=== PATIENT | female | born 1995 | race Caucasian/White ===

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

== ENCOUNTER → 2017-05-02 | Outpatient (CLI) | payer OTHER ==
[~2017-05-02] MED LIST changes: -PROPOFOL IV EMULSION 10 MG/ML 20 ML VIAL IV ONE
[2017-05-02 13:34] LABS: CORTISOL AM*DRAW BETWEEN 7-9AM 14.09 mcg/dl (4.30-22.40); T3 FREE 2.71 pg/ml (2.30-4.20)
[2017-05-02 13:44] LABS: PROLACTIN 9.1 ng/mL
[2017-05-06 16:13] LABS: ANA SCREEN TC 249X POSITIVE (NEGATIVE)
== END | disposition home or self-care (01) ==
LOC: C.LABBC 08:33
PROVIDERS: ATTEND Family Medicine
DX: E28.9 Ovarian dysfunction, unspecified (principal)

== ENCOUNTER → 2017-07-18 | Outpatient (CLI) | payer OTHER | END | disposition home or self-care (01) | LOC: C.PATHSPEC 16:57 | PROVIDERS: ATTEND Urology | DX: R35.0 Frequency of micturition (principal) ==

== ENCOUNTER → 2017-09-18 | Outpatient (CLI) | payer OTHER ==
[~2017-09-18] MED LIST changes: +OPTIRAY 320 IV PRN
--- NOTE | 2017-09-18 12:23 | DIAGNOSTIC IMAGING REPORT ---
CT ABD/PELVIS IV AND ORAL CONT (enterography study) CLINICAL HISTORY: ENTEROGRAPHY STUDY PRIOR ABNORMAL CT SCAN. ABDOMINAL PAIN. RECTAL PROLAPSE. COMPARISON STUDY: None. TECHNIQUE: Following the IV administration of 93 mL of Optiray-320, CT scan of the abdomen and pelvis was performed from the lung bases to the proximal femurs. Images are reviewed in the axial, sagittal, and coronal planes. IV contrast was administered without complication. A dose lowering technique was utilized adhering to the principles of ALARA. The patient was unable to tolerate the oral prep. CT DOSE: 311.15 mGycm FINDINGS: Lower chest: There are minimal dependent atelectatic changes. Liver: The contrast-enhanced liver is normal in size, contour, and attenuation. There is no intrahepatic biliary ductal dilatation. The hepatic veins and portal veins are patent. Gallbladder: Unremarkable. Spleen: Normal in size and attenuation. Pancreas: Unremarkable. Adrenal glands: Unremarkable. Kidneys: There is an 8 mm upper pole left renal cyst. Bowel: Bowel distention is suboptimal as the patient was unable to fully tolerate the administered oral prep. There are no transition zones indicate bowel obstruction. There is mild fecal retention. There is no evidence of pathologic bowel wall enhancement. There is no evidence of acute appendicitis. There is no evidence of acute diverticulitis. There is fecal material within distal small bowel loops which could indicate a motility disorder. Peritoneum: There is no intraperitoneal free air or abdominal ascites. There is a tiny fat-containing of focal hernia Vasculature: The abdominal aorta is normal in course and caliber. Adenopathy: None. Pelvic viscera: The bladder, and pelvic viscera are unremarkable. Skeletal structures: No destructive osseous lesions are seen. IMPRESSION: 1. No evidence of bowel obstruction. No evidence of free air 2. No acute inflammatory changes. Normal appendix. No evidence of acute diverticulitis. 3. Fecal retention. There is fecal material within small bowel loops which could indicate a motility disorder. Electronically signed by: Josep Monroe M.D. 09/18/2017 10:45 AM Dictated Date/Time: 09/18/2017 10:26 AM
== END | disposition home or self-care (01) ==
LOC: C.CTS 08:55
PROVIDERS: ATTEND Physician Assistant
DX: R93.5 Abnormal findings on diagnostic imaging of other abdominal regions, including retroperitoneum (principal)